=== PATIENT | female | born 1955 | race African-American/Black ===

== ENCOUNTER 2020-04-30 18:08 | Observation (INO) ==
[2020-04-30] MEDS ORDERED: SODIUM CHLORIDE 0.9% 1,000 ML IV STA (23:20)
[2020-04-30] MEDS ORDERED: VANCOMYCIN INJ 1,000 MG in SODIUM CHLORIDE 0.9% 250 ML IV STA (23:20)
[2020-05-01 00:07] LABS: INR 1.1; PT Patient Result 11.4 SECS (9.8-11.9)
[2020-05-01 00:08] LABS: Bilirubin,Urine Negative (Negative); Blood, Urine Small mg/dL (Negative); Glucose,Urine (UA) Negative (Negative); Ketones,Urine 5 mg/dL (Negative); Mucus,Urine Occasional /LPF (Occasional); Nitrite,Urine Negative (Negative); Protein,Urine 100 MG/DL; RBC,Urine 1 /HPF (0-4); Squamous Epithelial Cell,Urine Occasional /HPF (0-10); Urine Appearance CLEAR (Clear); Urine Color Yellow (Yellow); Urine Specific Gravity 1.031 (1.001-1.035); WBC,Urine 26 /HPF (0-6)
[2020-05-01 00:17] LABS: Barbiturates Screen,Urine Negative (Negative); Benzodiazepines Screen,Urine Negative (Negative); Cannabinoid Screen,Urine Negative (Negative); Opiate Screen,Urine Negative (Negative); Phencyclidine Screen,Urine Negative (Negative)
[2020-05-01 00:19] LABS: Basophils % 0.1 % (0.0-0.8); Eosinophils % 0.1 % (0.00-10.9); Hematocrit 36.7 VOL% (35.7-47.0); Hemoglobin 10.4 GM/DL (12.0-16.0); Immature Granulocytes % 0.7 %; Immature Granulocytes Absolute 0.05 #; Lymphocytes # 1.3 10*3/uL (1.4-4.0); Lymphocytes % 17.5 % (21.3-54.2); Mean Corpuscular HGB Conc 28.3 GM/DL (32-36); Mean Corpuscular Volume 78.6 FL (87-102); Mean Platelet Volume 12.3 FL (9.6-12.0); Monocytes % 14.8 % (1.7-12.7); Neutrophils % 66.8 % (38.7-73.9); Platelet Count 240 T/CUMM (130-400); Red Blood Count 4.67 MC/CUMM (3.8-5.5); Red Cell Distribution Width 21.4 % (9.3-17.3); White Blood Count 7.7 T/CUMM (4-12)
[2020-05-01 00:21] LABS: Bilirubin,Total 0.5 MG/DL (0.2-1.0); Calcium 9.1 MG/DL (8.5-10.1); Osmolality,Calculated 288.8 MOS/KG (273-304); Total Protein 7.6 G/DL (6.4-8.3)
[2020-05-01] MEDS ORDERED: GLUCAGON 1 MG VIAL IM PRN (01:55)
[2020-05-01] MEDS ORDERED: DEXTROSE 50% 25 GM/50 ML VIAL IV PRN (01:55)
[2020-05-01 02:13] LABS: Microcytosis 1+
[2020-05-01 02:14] LABS: Hypochromasia 2+; Platelet Estimate Normal
[2020-05-01] MEDS ORDERED: SODIUM CHLORIDE 0.9% 1,000 ML IV SCH (03:00)
[2020-05-01] MEDS: LEVOFLOXACIN INJ 500 MG in PREMIX 1 EACH IV SCH (03:36)
[2020-05-01 06:47] LABS: Basophils % 0.1 % (0.0-0.8); Eosinophils % 0.3 % (0.00-10.9); Hematocrit 31.5 VOL% (35.7-47.0); Hemoglobin 9.5 GM/DL (12.0-16.0); Immature Granulocytes % 0.4 %; Immature Granulocytes Absolute 0.03 #; Lymphocytes % 13.5 % (21.3-54.2); Mean Corpuscular HGB Conc 30.2 GM/DL (32-36); Mean Corpuscular Volume 73.9 FL (87-102); Mean Platelet Volume 11.5 FL (9.6-12.0); Monocytes % 13.9 % (1.7-12.7); Neutrophils % 71.8 % (38.7-73.9); Platelet Count 246 T/CUMM (130-400); Red Blood Count 4.26 MC/CUMM (3.8-5.5); Red Cell Distribution Width 15.2 % (9.3-17.3); White Blood Count 7.2 T/CUMM (4-12)
[2020-05-01 07:26] LABS: Albumin 2.8 G/DL (3.4-5.0); Bilirubin,Total 0.6 MG/DL (0.2-1.0); Calcium 8.8 MG/DL (8.5-10.1); Osmolality,Calculated 294.4 MOS/KG (273-304); Thyroid Stimulating Hormone 2.07 uIU/ml (0.358-3.74); Total Protein 6.9 G/DL (6.4-8.3); VLDL CHOLESTEROL 11.2 MG/DL
[2020-05-01] MEDS ORDERED: POTASSIUM CHLORIDE 20 MEQ TABLET PO ONE (09:30)
[2020-05-01] MEDS: ESCITALOPRAM 10 MG TABLET PO SCH (10:27)
[2020-05-01] MEDS: METOPROLOL SUCCINATE XL 25 MG TABLET PO SCH (10:27)
[2020-05-01] MEDS: LOSARTAN 50 MG TABLET PO SCH (10:27)
[2020-05-01] MEDS: ENOXAPARIN 40 MG/0.4 ML SYRINGE SUBCUT SCH (10:28)
[2020-05-01] MEDS: MEMANTINE 10 MG TABLET PO SCH ×2 (10:28→20:09)
[2020-05-01] MEDS: LACTULOSE 20 GM/30 ML UDCUP PO SCH ×2 (10:30→20:09)
[2020-05-01] MEDS: DEXT 5% NACL 0.45% KCL 20 MEQ 20 MEQ/1,000 ML BAG IV SCH ×2 (10:30→20:09)
[2020-05-02] MEDS: DEXT 5% NACL 0.45% KCL 20 MEQ 20 MEQ/1,000 ML BAG IV SCH ×4 (03:37→20:42)
[2020-05-02] MEDS: LEVOFLOXACIN INJ 500 MG in PREMIX 1 EACH IV SCH (03:37)
[2020-05-02 06:07] LABS: Basophils % 0.1 % (0.0-0.8); Eosinophils % 0.6 % (0.00-10.9); Hematocrit 32.3 VOL% (35.7-47.0); Hemoglobin 9.7 GM/DL (12.0-16.0); Immature Granulocytes % 0.4 %; Immature Granulocytes Absolute 0.03 #; Lymphocytes % 15.1 % (21.3-54.2); Mean Corpuscular Volume 73.2 FL (87-102); Mean Platelet Volume 11.2 FL (9.6-12.0); Monocytes % 15.4 % (1.7-12.7); Neutrophils % 68.4 % (38.7-73.9); Platelet Count 245 T/CUMM (130-400); Red Blood Count 4.41 MC/CUMM (3.8-5.5); Red Cell Distribution Width 14.7 % (9.3-17.3); White Blood Count 6.8 T/CUMM (4-12)
[2020-05-02 06:46] LABS: Albumin 2.3 G/DL (3.4-5.0); Bilirubin,Total 0.5 MG/DL (0.2-1.0); Calcium 8.6 MG/DL (8.5-10.1); Ferritin 290.9 ng/ml (8-252); Osmolality,Calculated 286.8 MOS/KG (273-304); Total Protein 6.5 G/DL (6.4-8.3)
[2020-05-02] MEDS ORDERED: IBUPROFEN 600 MG TABLET PO ONE (09:45)
[2020-05-02] MEDS ORDERED: POTASSIUM CHLORIDE 20 MEQ TABLET PO ONE (10:09)
[2020-05-02] MEDS: LACTULOSE 20 GM/30 ML UDCUP PO SCH ×2 (10:14→20:42)
[2020-05-02] MEDS: METOPROLOL SUCCINATE XL 25 MG TABLET PO SCH (10:14)
[2020-05-02] MEDS: ENOXAPARIN 40 MG/0.4 ML SYRINGE SUBCUT SCH (10:14)
[2020-05-02] MEDS: MEMANTINE 10 MG TABLET PO SCH ×2 (10:15→20:42)
[2020-05-02] MEDS: LOSARTAN 50 MG TABLET PO SCH (10:15)
[2020-05-02] MEDS: ESCITALOPRAM 10 MG TABLET PO SCH (10:15)
[2020-05-02] MEDS ORDERED: QUEtiapine 25 MG TABLET PO SCH (21:00)
[2020-05-03] MEDS: LEVOFLOXACIN INJ 500 MG in PREMIX 1 EACH IV SCH (03:35)
[2020-05-03] MEDS: DEXT 5% NACL 0.45% KCL 20 MEQ 20 MEQ/1,000 ML BAG IV SCH (05:58)
[2020-05-03] MEDS: LACTULOSE 20 GM/30 ML UDCUP PO SCH (09:28)
[2020-05-03] MEDS: LOSARTAN 50 MG TABLET PO SCH (09:28)
[2020-05-03] MEDS: ESCITALOPRAM 10 MG TABLET PO SCH (09:28)
[2020-05-03] MEDS: ENOXAPARIN 40 MG/0.4 ML SYRINGE SUBCUT SCH (09:28)
[2020-05-03] MEDS: METOPROLOL SUCCINATE XL 25 MG TABLET PO SCH (09:29)
[2020-05-03] MEDS: MEMANTINE 10 MG TABLET PO SCH (09:29)
[2020-05-03 11:51] VITALS: BP 168/76
== END 2020-05-03 14:24 | disposition home health service (06) ==
LOC: N.EDINP 18:08 → N.ED 18:08 → SUATTDRO 05-01 01:55 → N.3E 05-01 03:22 → N.2E 05-01 05:51 → N.5E 05-02 13:53
PROVIDERS: ADMIT Family Medicine; ATTEND Internal Medicine